=== PATIENT | female | born 1945 | race Caucasian/White ===

== ENCOUNTER → 2017-03-01 | Outpatient (CLI) | payer OTHER, MEDICARE | LOC: FIMAGING 08:45 | PROVIDERS: ATTEND Internal Medicine Critical Care Medicine | DX: J98.09 Other diseases of bronchus, not elsewhere classified (principal); J98.11 Atelectasis; J45.909 Unspecified asthma, uncomplicated; K76.9 Liver disease, unspecified; Z85.3 Personal history of malignant neoplasm of breast; Z90.13 Acquired absence of bilateral breasts and nipples ==

== ENCOUNTER → 2017-07-27 | Outpatient (CLI) | payer OTHER, MEDICARE | LOC: FIMAGING 07:40 | PROVIDERS: ATTEND Internal Medicine | DX: M54.2 Cervicalgia (principal); R13.10 Dysphagia, unspecified ==

== ENCOUNTER → 2017-08-11 | Outpatient (CLI) | payer OTHER, MEDICARE | LOC: FIMAGING 07:42 | PROVIDERS: ATTEND Internal Medicine | DX: M50.21 Other cervical disc displacement, high cervical region (principal); M48.02 Spinal stenosis, cervical region; M46.92 Unspecified inflammatory spondylopathy, cervical region; Z98.1 Arthrodesis status ==

== ENCOUNTER → 2018-03-10 | Outpatient (CLI) | payer OTHER, MEDICARE ==
[~2018-03-10] MED LIST: GADOBUTROL 10 ML VIAL IVP ONE
== END ==
LOC: FIMAGING 06:50
PROVIDERS: ATTEND Physician Assistant
DX: M89.38 Hypertrophy of bone, other site (principal); R60.0 Localized edema; M50.20 Other cervical disc displacement, unspecified cervical region; M48.02 Spinal stenosis, cervical region
CPT/HCPCS: 70543; A9585; 82565-PO

== ENCOUNTER → 2018-03-24 | Outpatient (CLI) | payer OTHER, MEDICARE | LOC: FIMAGING 11:37 | PROVIDERS: ATTEND Internal Medicine | DX: R05 Cough (principal) ==